=== PATIENT | male | born 1985 | race African-American/Black ===

== ENCOUNTER → 2024-06-24 | Outpatient (CLI) | payer OTHER | LOC: M PLAIMG 07:02 | PROVIDERS: ATTEND Otolaryngology | DX: J32.4 Chronic pansinusitis (principal) ==

== ENCOUNTER 2024-08-26 10:36 | Day surgery (SDC) | payer OTHER ==
[~2024-08-26] VITALS: Ht 180.3 cm; Wt 98.0 kg
[~2024-08-26 10:36] MED LIST: MEDR4PAK PO; METH-1165 PO; NAPR-885 PO
[2024-08-26] MEDS ORDERED: ACETAMINOPHEN 1000MG/100ML IV BAG As Ordered ONE (11:19)
[2024-08-26] MEDS ORDERED: dexmedeTOMIDine (4 MCG/ML) 200 MCG/50 ML BTL As Ordered ONE (11:19)
[2024-08-26] MEDS ORDERED: dexAMETHasone 4 MG/ML 1 ML VIAL As Ordered ONE (11:20)
[2024-08-26] MEDS ORDERED: LIDOCAINE 2% 100 MG/5 ML SDV (FOR ANES.) As Ordered ONE (11:21)
[2024-08-26] MEDS ORDERED: ROCURONIUM BROMIDE 50MG/5ML VIAL As Ordered ONE (11:43)
[2024-08-26] MEDS ORDERED: MIDAZOLAM INJ 2 MG/2 ML VIAL As Ordered ONE (12:11)
[2024-08-26] MEDS ORDERED: LACRILUBE (AKWA TEARS) OPHTH OINT 3.5 GM As Ordered ONE (12:46)
[2024-08-26] MEDS: LIDOCAINE W/EPINEPHrine 1% 20 ML VIAL As Ordered ONE (13:00)
[2024-08-26] MEDS: METHYLENE BLUE 0.5% (5 MG/ML) 10 ML AMP As Ordered ONE (13:06)
[2024-08-26] MEDS: OXYMETAZOLINE 0.05% NASAL SPRAY As Ordered ONE (13:07)
[2024-08-26] MEDS ORDERED: ONDANSETRON 4MG 2ML VIAL As Ordered ONE (13:23)
[2024-08-26] MEDS ORDERED: KETOROLAC 30 MG/ML 1 ML VIAL As Ordered ONE (13:23)
[2024-08-26] MEDS ORDERED: SUGAMMADEX SODIUM 500 MG/5 ML VIAL As Ordered ONE (13:52)
[2024-08-26] MEDS ORDERED: MORPHINE 2 MG/ML 1 ML VIAL IV PRN (14:20)
[2024-08-26] MEDS ORDERED: ONDANSETRON 4MG 2ML VIAL IV PRN (14:20)
[2024-08-26] MEDS: OXYMETAZOLINE 0.05% NASAL SPRAY ONE (15:10)
[2024-08-26] MEDS ORDERED: TRANEXAMIC ACID 100 MG/ML 10ML VIAL As Ordered ONE (15:32)
[2024-08-26] MEDS: TRANEXAMIC ACID INJection 1,000 MG in D5W 100 ML IV ONE (15:35)
[2024-08-26 17:43] VITALS: BP 145/90; TEMP 98.2; O2SAT 100
== END 2024-08-26 18:05 | disposition home or self-care (01) ==
LOC: M SDC 10:36
PROVIDERS: ATTEND Otolaryngology
DX: J32.8 Other chronic sinusitis (principal); J34.89 Other specified disorders of nose and nasal sinuses; J34.2 Deviated nasal septum; J34.3 Hypertrophy of nasal turbinates; J33.8 Other polyp of sinus; R09.81 Nasal congestion
CPT/HCPCS: 30140; 31256; 31257; 31276; 61782; 88305; C2625; J0131; J1100; J1885; J2250; J2405; J3010; Q9968

== ENCOUNTER 2024-10-03 09:08 | Emergency (ER) | payer OTHER ==
[~2024-10-03] VITALS: Ht 180.3 cm; Wt 95.8 kg
[2024-10-03] MEDS ORDERED: AMOX875T PO (09:24)
[2024-10-03 15:57] VITALS: BP 134/90; TEMP 99.1; O2SAT 97
== END 2024-10-03 16:01 | disposition home or self-care (01) ==
LOC: EDBD 09:08 → M ED 09:08 → MERGE 09:08 → M ED 16:01
DX: M51.360 Other intervertebral disc degeneration, lumbar region with discogenic back pain only (principal); M48.061 Spinal stenosis, lumbar region without neurogenic claudication; N52.8 Other male erectile dysfunction; I10 Essential (primary) hypertension; Z79.2 Long term (current) use of antibiotics